=== PATIENT | female | born 1995 | race Caucasian/White ===

== ENCOUNTER 2021-12-15 17:10 | Outpatient (CLI) | payer OTHER, SELFPAY ==
--- NOTE | ~2021-12-15 | XR_ITS ---
XR lumbar spine min 4V DATE: 12/15/2021 17:49 INDICATION: Back pain TECHNIQUE: Standing AP, lateral, coned lateral lumbosacral views. Bilateral oblique views. COMPARISON: None FINDINGS: There is 24 degrees dextroscoliosis measured from T11 to L4. No fracture or bone destruction. The lumbar pedicles are intact. No spondylolysis or spondylolisthesi s. Lumbar and lumbosacral spaces appear well preserved. The sacroiliac joints appear normal. IMPRESSION: 24 degrees dextroscoliosis from T11 to L4 Reviewed, dictated and finalized at location A.
--- NOTE | ~2021-12-15 | XR_ITS ---
XR_CERV2-3V_CR DATE: 12/15/2021 17:49 INDICATION: Neck pain TECHNIQUE: AP, open-mouth and lateral views COMPARISON: None FINDINGS: There is straightening of the cervical spine on lateral view which may be due to muscle spa sm. There is mild levoscoliosis of the cervical spine. C1 and C2 are normally aligned and the odontoi d process is intact. No fracture or dislocation or locked facet or prevertebral soft tissue swelling. Cervical interspaces are preserved. IMPRESSION: Straightening and mild levoscoliosis Reviewed, dictated and finalized at Location A. Reviewed, dictated and finalized at location A.
--- NOTE | ~2021-12-15 | XR_ITS ---
XR thoracic spine 3V DATE: 12/15/2021 17:50 INDICATION: Back pain TECHNIQUE: Standing AP, lateral and swimmer views COMPARISON: None FINDINGS: There is 17 degrees levoscoliosis measured from T1 to T11. No fracture or dislocation or amy ne destruction. The thoracic pedicles are intact. No paraspinal soft tissue thickening. IMPRESSION: Levoscoliosis Reviewed, dictated and finalized at location A. IMPRESSION: Levoscoliosis
== END 2021-12-15 17:11 | disposition home or self-care (01) ==
LOC: ANHIMG 17:17
PROVIDERS: PCP Physician Assistant; Visit Provider Physician Assistant
DX: M54.2 Cervicalgia (principal); M54.50 Low back pain, unspecified; M41.9 Scoliosis, unspecified
CPT/HCPCS: 72040; 72072; 72110

== ENCOUNTER 2021-12-23 15:46 | Outpatient (CLI) | payer OTHER, SELFPAY ==
[2021-12-23 19:43] LABS: Alanine Aminotransferase 30 U/L (6-35); Albumin Level 4.7 g/dL (3.5-5.1); Alkaline Phosphatase 108 U/L (38-126); Anion Gap 12 mmol/L (8-16); Aspartate Amino Transferase 79 U/L (14-36); Bilirubin,Total 0.4 mg/dL (0.2-1.3); Blood Urea Nitrogen 16 mg/dL (7-17); Calcium 9.5 mg/dL (8.4-10.2); Carbon Dioxide 25 mmol/L (22-30); Chloride 102 mmol/L (98-107); Estimated Glomerular Filt Rate > 60; Glucose 88 mg/dL (65-110); Potassium 3.5 mmol/L (3.4-5.0); Sodium 139 mmol/L (137-145)
[2021-12-23 19:56] LABS: Hematocrit 40.3 % (37.0-47.0); Hemoglobin 13.9 g/dL (12.0-15.0); Mean Corpuscular HGB Conc 34.5 g/dl (32-36); Mean Corpuscular Hemoglobin 30.8 pg (26-34); Mean Corpuscular Volume 89.4 fl (80-100); Mean Platelet Volume 11.2 fl (7.4-10.4); Platelet Count Result 356 k/mm3 (150-375); Red Blood Count 4.51 M/mm3 (4.2-5.4); Red Cell Distribution Width 12.6 % (11.5-14.5)
== END 2021-12-23 15:47 | disposition home or self-care (01) ==
LOC: ANHGOSHLAB 15:47
PROVIDERS: PCP Physician Assistant; Visit Provider Physician Assistant
DX: Z00.00 Encounter for general adult medical examination without abnormal findings (principal)
CPT/HCPCS: 36415; 80053; 84443; 85027

== ENCOUNTER 2023-05-12 11:30 | Outpatient (CLI) | payer OTHER, SELFPAY ==
[2023-05-12 19:01] LABS: Hematocrit 36.1 % (37.0-47.0); Hemoglobin 12.2 g/dL (12.0-15.0)
[2023-05-12 19:34] LABS: Glucose 1 Hour PP 50gm Dose 75 mg/dL
[2023-05-12 20:21] LABS: HIV 1/2 Ab P24 Ag Result Negative (Negative)
== END 2023-05-12 11:31 | disposition home or self-care (01) ==
LOC: ANHGOSHLAB 11:32
PROVIDERS: PCP Family Medicine; Visit Provider Obstetrics & Gynecology
DX: Z34.90 Encounter for supervision of normal pregnancy, unspecified, unspecified trimester (principal)
CPT/HCPCS: 36415; 82947; 85014; 85018; 86703; G0432

== ENCOUNTER 2023-08-06 13:22 | Inpatient (IN) | payer OTHER, SELFPAY ==
[2023-08-06] VITALS (11 sets, daily range): BP systolic 127–140; BP diastolic 76–89; PULSE 70–85; RESP 18; TEMP 36.4–36.8; BMI 29.3
[2023-08-06 14:16] LABS: Basophils Percent Auto 0.2 % (0.2-1.2); Eosinophils Absolute Auto 0.1 K/mm3 (0-0.3); Immature Granulocyte Absolute 0.03 K/mm3 (0.00-0.031); Immature Granulocyte Percent A 0.3 % (0-0.5); Lymphocytes Absolute Auto 2.08 K/mm3 (0.9-3.2); Lymphocytes Percent Auto 22.9 % (18.3-44.2); Mean Corpuscular HGB Conc 34.2 g/dl (32-36); Mean Corpuscular Hemoglobin 31.3 pg (26-34); Mean Corpuscular Volume 91.3 fl (80-100); Monocytes Absolute Auto 0.5 K/mm3 (0.1-0.6); Monocytes Percent Auto 5.7 % (2.6-8.5); Neutrophils Absolute Auto 6.3 K/mm3 (1.3-6.7); Neutrophils Percent Auto 69.9 % (45.5-73.1); Platelet Count Result 258 k/mm3 (150-375); Red Blood Count 4.16 M/mm3 (4.2-5.4); Red Cell Distribution Width 13.1 % (11.5-14.5); White Blood Count 9.1 K/mm3 (4.5-10.0)
[2023-08-06] MEDS: LACTATED RINGERS 1,000 ML 125 ML IV CONT (14:27)
[2023-08-06] MEDS: AMPICILLIN 2 GM/NS 100 ML 2 GM/100 ML BAG IVPB (14:28)
--- NOTE | 2023-08-06 14:39 | LDADM ---
This patient, Emily Aguillon, was admitted to Labor/Delivery/Recovery 107 on 08/06/23 at 13:22 for leaking fluid. Plans for labor, pain management and were discussed with patient. Patient/family oriented to hospital policies and general routines including ID bracelet, bed and alarms, visiting hours, pain management, procedures, bathroom and other care routines, personal items, smoking policy, room service/diet and guest tray routines, infant security routines, and visiting hours. Patient/Family are encouraged to report perceived risks to care and to ask questions if they do not understand what they are told or what they should do. See OBIX for further documentation.
[2023-08-06 15:06] LABS: HIV 1/2 Ab P24 Ag Result Negative (Negative)
--- NOTE | 2023-08-06 17:00 | WPDANESEPP ---
Anes - Eval Pre Procedure Procedure: Labor epidural Date/Time: 08/06/23 17:00 Surgeon: juancarlos Preop Diagnosis: Abdominal pain with contractions Pre Op Diagnosis: Contractions Patient Data Age: 28 Gender: F Height: 1.63 m Weight: 77.5 kg Last Vital Signs Temp 97.5 F L 08/06/23 16:25 Pulse 70 08/06/23 15:00 BP 127/76 08/06/23 15:00 O2 Del Method Room Air 08/06/23 14:35 Allergies Allergy/AdvReac Type Severity Reaction Status Date / Time No Known Allergies Allergy Verified 08/01/23 13:22 Home Medications Medication Instructions Recorded Confirmed Type vits no.126-ferrous fum 1 tablet PO DAILY 08/01/23 08/06/23 History 28 mg iron-folic acid 800 mcg tablet (Classic ) sertraline 50 mg tablet 75 mg PO DAILY 08/01/23 08/06/23 History Laboratory Tests 08/06/23 14:11 WBC 9.1 K/mm3 (4.5-10.0) RBC 4.16 L M/mm3 (4.2-5.4) Hgb 13.0 g/dL (12.0-15.0) Hct 38.0 % (37.0-47.0) MCV 91.3 fl (80-100) MCH 31.3 pg (26-34) MCHC 34.2 g/dl (32-36) RDW 13.1 % (11.5-14.5) Plt Count 258 k/mm3 (150-375) MPV 12.0 H fl (7.4-10.4) Immature Gran % (Auto) 0.3 % (0-0.5) Neut % (Auto) 69.9 % (45.5-73.1) Lymph % (Auto) 22.9 % (18.3-44.2) Graves % (Auto) 5.7 % (2.6-8.5) Eos % (Auto) 1.0 % (0-4.4) Baso % (Auto) 0.2 % (0.2-1.2) Lymph # (Auto) 2.08 K/mm3 (0.9-3.2) Graves # (Auto) 0.5 K/mm3 (0.1-0.6) Eos # (Auto) 0.1 K/mm3 (0-0.3) Baso # (Auto) 0.0 K/mm3 (0.0-0.1) Abs Immat Gran (auto) 0.03 K/mm3 (0.00-0.031) Absolute Neuts (auto) 6.3 K/mm3 (1.3-6.7) Absolute Nucleated RBC 0.000 K/mm3 (0.0-0.012) Nucleated RBC % 0.0 % (0.0-0.2) RPR Pending HIV 1&2 Ab/P24 Ag 4thGn Negative (Negative) Blood Type O Positive Antibody Screen Negative : gestational age HCG: positive Patient hx anesthesia problems: none Family hx anesthesia problems: none Results Review: All pre-operative results and documents have been reviewed as part of the pre-operative evaluation. [facility] Past Medical History Medical History Overweight (BMI 25.0-29.9) and not yet delivered Family History Family History Other Unknown family medical history Social History Social History Smoking status: Never smoker Alcohol intake: current Drinks per week: 2 Substance use: never Do You Feel Safe in your Home?: Yes Lack of Transportation: No Lack of Food: Never True Current Housing: I Have Housing Concerned About Future Housing: No Difficulty Paying Gas/Electric Bills: No Difficulty Paying for Meds: No Currently Unemployed: No Education: Master's Degree or Higher Difficulty w/ Childcare or Family Care: No Spiritual care concerns: No Exam Day of Procedure 08/06/23 17:00 Patient weight: overweight Heart: regular rate and rhythm Lungs: clear to auscultation
[2023-08-06] MEDS: AMPICILLIN 1 GM/NS 50 ML 1 GM/50 ML BAG IVPB ×2 (19:00→23:26)
--- NOTE | 2023-08-06 21:19 | WPDOBADMIT ---
Obstetrics - Admit Note Admission Note: record reviewed. No pertinent additions to the history and/or any subsequent changes in the physical findings that are not consistent with the expected course of the were found. Additions to the history and/or subsequent changes in the physical findings follow. Pt admitted from home with SROM.
--- NOTE | 2023-08-06 21:20 | PM.OBPNLAB ---
Pain Control Date/time seen: 08/06/23 1420 Assessment and Plan Comments: Called by RN. Pt presented to unit from home with SROM. Having some occasional contractions. VSS. FHTs reassuring. Pt desires minimal intervention and would prefer to avoid pitocin. Plan cervical exam in few hours and recommend Pitocin if no change. Pt to receive Ampicillin for GBS+ status. Dr. Zamora updated.
--- NOTE | 2023-08-06 21:23 | PM.OBPNLAB ---
Pain Control Date/time seen: 08/06/23 9723 Assessment and Plan Comments: Called by RN. Pt intermittently breast pumping to stimulate contractions. Cervix has changed to 1.5 cm and is more effaced. Plan expectant management. Per RN, FHTs reactive and VSS.
--- NOTE | 2023-08-06 21:25 | PM.OBPNLAB ---
Pain Control Date/time seen: 08/06/232039 Assessment and Plan Comments: CNM called RN for update. No repeat exam yet. RN to check cervix. Phone call back to CNM. Pt unchanged. Recommended starting pitocin. Pt declines at this time. Plan expectant management. No evidence of infection. VSS. Ampicillin for GBS+ continues.
--- NOTE | 2023-08-06 21:28 | PM.OBPNLAB ---
Pain Control Date/time seen: 08/06/232049 Assessment and Plan Comments: CNM spoke with RN. RN discussed option of ROM of forebag. Per RN, head floating. Discused CNM will not ruprture forebag while head not well applied. Discussed membranes already ruptured. Called Dr. Zamora and discussed plan of care with . OK to continue expectant management. Pt may continue intermittent monitoring as long as tracing is reassuring. May breast pump if desired to stimulate contractions. Can start pitocin whenever desired if still no cervical change.
[2023-08-07] VITALS (20 sets, daily range): BP systolic 91–133; BP diastolic 32–89; PULSE 70–128; RESP 16–18; TEMP 36.6–37; O2SAT 97–100
[2023-08-07] MEDS: OXYTOCIN 30 UNITS/NS 500 ML 30 UNITS/500 ML BAG IV CONT (00:29)
[2023-08-07] MEDS: AMPICILLIN 1 GM/NS 50 ML 1 GM/50 ML BAG IVPB ×2 (03:14→07:01)
[2023-08-07] MEDS: fentaNYL CITRATE INJ (*CRX) 100 MCG/2 ML VIAL IV PUSH ×3 (03:22→05:35)
--- NOTE | 2023-08-07 07:31 | P.PCNOB_ITS ---
OB - Vaginal Delivery Note Procedure Delivery date: 08/07/23 Events: Positive Group B Strep (GBS) and Other (prolonged rom) Induction method: None Delivery monitor: External FHT Route of delivery: Episiotomy description: None Laceration Description: None Specimen: No Quantitative Blood Loss (ml): 61 Anesthesia type: None Disposition: Floor Complications: No immediate complications Narrative: amp x 4 for gbs [place] Baby Date of : 08/07/23 Time of : 07:24 Weeks of gestation at delivery: 38 Infant gender: Female presentation: vertex position: Right Occiput Anterior Placenta delivery description: Spontaneous Cord Vessel Description: 3 Vessels score one minute: 8 score five minutes: 9
[2023-08-07] MEDS: ACETAMINOPHEN 500 MG TABLET 1000 MG (07:45)
[2023-08-07] MEDS: OXYTOCIN 30 UNITS/NS 500 ML 30 UNITS/500 ML BAG 125 UNITS IV CONT (07:47)
[2023-08-07] MEDS: BENZOCAINE 20% AER SPR (*SP) 56 GM CAN 1 SPRAY TOPICAL (09:54)
[2023-08-07] MEDS: WITCH HAZEL 40 PADS 1 PAD TOPICAL (09:54)
--- NOTE | 2023-08-07 11:17 | PC.NURSE ---
[id number] Introductions were made, then consulted with patient to assess needs related to . Discussed with mother her?plans to feed?her infant, the?experience so far and signs of an effective latch with swallowing looks like. Encouraged understanding of the benefits of skin to skin (demonstrating unwrapping infant and placing upright on her chest), stimulating with massage touch, changing positions to encourage wakefulness, how to watch for early feeding cues, responsive feeding, feeding on demand (aiming for 8-12 times in 24 hours, about every 2-3 hours), milk production, building/maintaining a milk supply, duration of feeding, signs of adequate intake/output and how to record on the feeding sheet. Mother works well with her infant with encouragement and education. Reviewed positioning and ear, shoulder, hip alignment, supporting the breast to facilitate a deep latch, asymmetrical latch (off-center), leading with the chin with a big, open, wide gape and body close to mother. latched to the right breast in cross cradle position, then to the left breast. Education given to the mother of how to visualize the suckling (with good rocking jaw motion), swallows (dropping of the lower jaw) and how to listen for drinking at the breast (the ka sound) which infant demonstrated rarely. was able to maintain latch without pain to mother protecting the nipple with optimal positioning and latching. Reviewed comfort measures of healing with a warm, wet washcloth to rinse breast, then leave open to air-dry, good handwashing when or touching the breast/nipples to prevent infection. Encouraged mother to watch for swallowing, shape of her nipple after detaches, how to protect her nipple and milk supply. At times infant demonstrates sucking on the nipple and has dimpling on the cheek. Confirm understanding with mother to latch deeply to encourage more milk swallows. Mother latches , then moves to laid-back positioning which encourages infant to latch deeper using gravity. Mother voiced understanding of skin to skin, stimulating with massage touch, responsive feedings, hand expressed colostrum, talking to infant to encourage if it has been 2 -2.5 hours since the start of the last , to call if infant does not latch, or if there is discomfort with . Resources used for education were facilitated with the visual educational handouts/ tool/mom and baby guide. Inpatient/outpatient resources provided with business card, feeding sheet, name written on the communication board, and the mom/baby guide. Mother voiced understanding of information and will call if there is a request for assistance. Reported to the Primary RN.
[2023-08-07 14:28] LABS: Rapid Plasma Reagin Non-Reactive (NonReactive)
[2023-08-07] MEDS: IBUPROFEN 600 MG TABLET PO ×2 (14:44→20:46)
--- NOTE | 2023-08-07 15:01 | OBPPTRN ---
1008 Patient transferred to post room #291 via W/C. Support person present. Oriented to unit, room, information board, rooming in, admission packet and security measures. Patient verbalizes understanding.
[2023-08-07] MEDS: DOCUSATE SODIUM 100 MG CAPSULE PO (17:08)
[2023-08-08] MEDS: ACETAMINOPHEN 325 MG TABLET 650 MG PO ×2 (04:03→18:21)
[2023-08-08 04:39] LABS: Hematocrit 33.1 % (37.0-47.0); Hemoglobin 10.8 g/dL (12.0-15.0)
[2023-08-08 07:50] VITALS: BP 126/74; PULSE 65; RESP 18; TEMP 37.1; O2SAT 98
--- NOTE | 2023-08-08 08:42 | PM.OBPNVD ---
OB - PN: Subj Subjective Date/time seen: 08/08/23 08:42 Narrative: Pain OK. OB - PN: Obj Data Labs 08/08/23 03:56 Labs: Laboratory Results - last 24 hr 08/06/23 08/08/23 14:11 03:56 Hgb 10.8 L Hct 33.1 L RPR Non-reactive OB - PN A/P Plan Comments: A: PPD#1, doing well. P: Routine care. Exam Psych: Other: AVSS ABD soft, nontender, fundus firm EXT nontender
[2023-08-08] MEDS: IBUPROFEN 600 MG TABLET PO ×2 (09:10→15:42)
[2023-08-08] MEDS: MULTIVIT/MIN/PREN/FOL AC/IRON TABLET 1 TAB PO (09:10)
[2023-08-08] MEDS: SERTRALINE HCL 25 MG TABLET 75 MG PO (09:11)
--- NOTE | 2023-08-08 11:17 | PC.NURSE ---
[id number] Mother verbalizes she is able to independently latch with appropriate positioning and alignment. She denies any nipple discomfort and is responsively . Infant is currently meeting outcomes for weight, output, jaundice, blood sugar and feeding frequencies of 8-12 times in 24 hours. Mother declines any additional assistance or education at this time. Mother is encouraged to call for assistance if her infant doesn?t latch, pain with latching, questions or concerns. Instructions given on cleaning, care, usage, that there should be no pain, pumping schedule for milk production, collection, and storage of human milk for the future use. Mother voiced understanding of information shared along with the feeding sheet and the mom/baby guide for an additional resource and services inpatient and outpatient. Reported to the Primary RN.
--- NOTE | 2023-08-08 15:43 | PC.NURSE ---
[id number] Purposefully rounded to assess for needs. Mother is confidently latching infant independently without pain.
[2023-08-08 20:14] VITALS: BP 138/84; PULSE 77; RESP 18; TEMP 37.1
[2023-08-09] MEDS: ACETAMINOPHEN 325 MG TABLET 650 MG PO (00:57)
--- NOTE | 2023-08-09 06:07 | PM.OBPNVD ---
OB - PN: Subj Subjective Date/time seen: 08/09/23 06:07 Narrative: Pain OK. Would like to go home. OB - PN: Obj Data Labs 08/08/23 03:56 OB - PN A/P Plan day: 2 Comments: A: PPD#2, doing well. P: Home to f/u 6 weeks. Exam Psych: Other: AVSS ABD soft, nontender, fundus firm EXT nontender
--- NOTE | 2023-08-09 06:08 | PM.OBDSVD ---
DS: Admitting Diagnosis Discharge Date 08/09/23 Admitting Diagnosis IUP at term SROM DS: Discharge Diagnosis Discharge Diagnosis (1) (normal spontaneous vaginal delivery): Code(s): O80 - Encounter for full-term uncomplicated delivery Status: Acute OB - DS: Summary OB Procedures : None OB Procedures Intrapartum: Spontaneous Vag Delivery OB Procedures: : None Peripartum Data Laceration Description: None Episiotomy description: None Time Spent with Patient Time attestation: Total time spent providing and/or coordinating discharge services: Discharge Plan Discharge Attending physician on discharge: Tucker Bustamante Discharging Clinician: Tucker Bustamante Patient Disposition: Home, Self-Care Activity: pelvic rest Diet: regular Discharge Instructions: Call or return if temperature above 100.4? F, increased abdominal pain, increased vaginal bleeding or any new problems. Stand Alone Forms: General Discharge Information Follow-up/Referrals: Tucker Bustamante MD [Physician] - 6 Weeks Discharge Medications: New ibuprofen 600 mg tablet 600 mg PO Q6H PRN (Reason: cramps) Qty: 30 0RF Continued sertraline 50 mg Tablet 75 mg PO DAILY Classic 28 mg iron- 800 mcg Tablet 1 tablet PO DAILY Date of admission: 08/06/23 13:22 Primary Care Provider: Radha Umana Admitting Provider: Tucker Bustamante Attending physician on admission: Tucker Bustamante Condition: Stable
[2023-08-09] MEDS: DOCUSATE SODIUM 100 MG CAPSULE PO (06:51)
[2023-08-09] MEDS: IBUPROFEN 600 MG TABLET PO (06:51)
[2023-08-09] MEDS: SERTRALINE HCL 25 MG TABLET 75 MG PO (06:51)
[2023-08-09] MEDS: MULTIVIT/MIN/PREN/FOL AC/IRON TABLET 1 TAB PO (06:51)
[2023-08-09 06:55] VITALS: BP 134/88; PULSE 66; RESP 18; TEMP 36.3; O2SAT 100
[2023-08-10 10:26] VITALS: BP 129/77; PULSE 81; RESP 18; TEMP 36.8; O2SAT 98
== END 2023-08-09 10:10 | disposition home or self-care (01) | DRG 807 ==
LOC: ANHLDR 13:49 → ANHOB2 08-07 10:14
PROVIDERS: Obstetrics & Gynecology; Admitting Provider Advanced Practice Midwife; PCP Family Medicine; Visit Provider Obstetrics & Gynecology
DX: O42.02 Full-term premature rupture of membranes, onset of labor within 24 hours of rupture (principal); Z37.0 Single live birth; Z3A.38 38 weeks gestation of pregnancy; O99.824 Streptococcus B carrier state complicating childbirth
CPT/HCPCS: 36415; 84112; 85014; 85018; 85025; 86592; 86703; 86850; 86900; 86901; A9270; G0432; J0290; J2590; J3010; J7120